=== PATIENT | female | born 1975 | race Caucasian/White ===

== ENCOUNTER 2018-08-08 17:19 | Outpatient (CLI) | payer OTHER ==
[~2018-08-08 17:19] MED LIST: ACCUNEB0.63 MG/3; TAMIFLU45 MG
== END 2018-08-09 11:37 | disposition home or self-care (01) ==
LOC: OBS/DEL 17:19
DX: O26.893 Other specified pregnancy related conditions, third trimester (principal); R42 Dizziness and giddiness; Z34.83 Encounter for supervision of other normal pregnancy, third trimester

== ENCOUNTER 2018-08-10 11:45 | Outpatient (CLI) | payer OTHER | END 2018-08-10 19:03 | disposition home or self-care (01) | LOC: OBS/DEL 11:45 | DX: O35.8XX0 Maternal care for other (suspected) fetal abnormality and damage, not applicable or unspecified (principal); O26.893 Other specified pregnancy related conditions, third trimester; R42 Dizziness and giddiness; O76 Abnormality in fetal heart rate and rhythm complicating labor and delivery; Z34.83 Encounter for supervision of other normal pregnancy, third trimester ==

== ENCOUNTER 2018-09-03 01:01 | Outpatient (CLI) | payer OTHER | END 2018-09-03 11:40 | disposition home or self-care (01) | LOC: OBS/DEL 01:01 | DX: O47.1 False labor at or after 37 completed weeks of gestation (principal); Z34.83 Encounter for supervision of other normal pregnancy, third trimester ==

== ENCOUNTER 2018-09-09 06:33 | Outpatient (CLI) | payer OTHER ==
[2018-09-10] MEDS ORDERED: MAXFE CAPLET1 EACH PO (08:07)
== END 2018-09-09 11:44 | disposition still patient (30) ==
LOC: OBS/DEL 06:33
DX: O47.1 False labor at or after 37 completed weeks of gestation (principal); O35.8XX0 Maternal care for other (suspected) fetal abnormality and damage, not applicable or unspecified; Z34.83 Encounter for supervision of other normal pregnancy, third trimester

== ENCOUNTER 2018-09-09 11:45 | Inpatient (IN) | payer OTHER ==
[~2018-09-09] VITALS: Ht 170.2 cm; Wt 4.1 kg
[2018-09-10] MEDS ORDERED: MAXFE CAPLET1 EACH PO (08:07)
[2018-09-13] MEDS ORDERED: COLACE100 MG PO (11:35)
[2018-09-13] MEDS ORDERED: GAS-X125 MG PO (11:36)
== END 2018-09-13 14:26 | disposition home or self-care (01) | DRG 785 ==
LOC: LDR 11:45 → OB/GYN 11:45
PROVIDERS: ADMIT Obstetrics & Gynecology
PROC: 10D00Z1 Extraction of Products of Conception, Low, Open Approach (ICD-10-PCS; principal; 2018-09-09)
PROC: 0UL70ZZ Occlusion of Bilateral Fallopian Tubes, Open Approach (ICD-10-PCS; 2018-09-09)
PROC: 4A1HXCZ Monitoring of Products of Conception, Cardiac Rate, External Approach (ICD-10-PCS; 2018-09-09)
DX: O82 Encounter for cesarean delivery without indication (principal); O64.8XX0 Obstructed labor due to other malposition and malpresentation, not applicable or unspecified; Z3A.39 39 weeks gestation of pregnancy; Z37.0 Single live birth; Z30.2 Encounter for sterilization